=== PATIENT | female | born 1990 | race Caucasian/White ===

== ENCOUNTER 2016-11-20 13:14 | Emergency (ER) | payer OTHER ==
[~2016-11-20] VITALS: Ht 162.6 cm; Wt 67.8 kg
[2016-11-20] MEDS ORDERED: BACL1TAB8 GT (13:20)
[2016-11-20] MEDS ORDERED: ORTHTAB14 PO (13:20)
[2016-11-20] MEDS ORDERED: ONDANSETRON 4MG/2ML VIAL (J2405) IV ONE (14:00)
[2016-11-20] MEDS ORDERED: KETOROLAC 30 MG/ML VIAL (J1885) IV ONE (14:00)
[2016-11-20] MEDS ORDERED: GASTROGRAFIN SOLUTION 30ML (Q9963) PO ONE ×2 (14:30)
[2016-11-20 14:56] LABS: BASO # 0.1 K/mm3 (0.0-0.2); BASO % 0.7 % (0.0-1.0); EOS # 0.2 K/mm3 (0.0-0.50); EOS % 1.8 % (0.0-3.0); LARGE UNSTAINED CELL # 0.2 K/mm3 (0.0-0.4); LARGE UNSTAINED CELL % 2.1 % (0.0-4.0); LYMPH # 3.1 K/mm3 (1.5-6.5); LYMPH % 33.6 % (24.0-44.0); MEAN CORPUSCULAR HEMOGLOBIN 30.6 pg (27.0-33.0); MEAN CORPUSCULAR HGB CONC 33.3 g/dl (32.0-36.5); MEAN CORPUSCULAR VOLUME 91.9 fl (80.0-96.0); MONO # 0.2 K/mm3 (0.0-0.8); MONO % 2.6 % (0.0-5.0); NEUTROPHILS # 5.2 K/mm3 (1.8-7.7); NEUTROPHILS % 59.2 % (36.0-66.0); PLATELET COUNT, AUTOMATED 273 k/mm3 (150-450); WHITE BLOOD COUNT 8.8 K/mm3 (4.0-10.0)
[2016-11-20 14:57] LABS: ALBUMIN 3.8 GM/DL (3.2-5.2); ALBUMIN/GLOBULIN RATIO 1.06 (1.00-1.93); ALKALINE PHOSPHATASE 45 U/L (45-117); ALT/SGPT 22 U/L (12-78); ANION GAP 8 MEQ/L (8-16); AST/SGOT 17 U/L (15-37); BILIRUBIN,DIRECT < 0.1 MG/DL (0.0-0.2); BILIRUBIN,TOTAL 0.3 MG/DL (0.2-1.0); BLOOD UREA NITROGEN 11 MG/DL (7-18); CALCIUM LEVEL 9.1 MG/DL (8.5-10.1); CARBON DIOXIDE LEVEL 25 MEQ/L (21-32); CHLORIDE LEVEL 105 MEQ/L (98-107); CREATININE FOR GFR 0.94 MG/DL (0.55-1.02); GLOMERULAR FILTRATION RATE > 60.0 (>60); GLUCOSE, FASTING 84 MG/DL (70-105); POTASSIUM SERUM 4.1 MEQ/L (3.5-5.1); SODIUM LEVEL 138 MEQ/L (136-145); TOTAL PROTEIN 7.4 GM/DL (6.4-8.2)
[2016-11-20] MEDS ORDERED: ISOVUE-370 76% 100ML VIAL (Q9967) As Ordered ONE (15:58)
[2016-11-20] MEDS ORDERED: NAPR500T PO (16:27)
--- NOTE | 2016-11-20 16:37 | REP ---
REASON: Bilateral lower abdominal pain. COMPARISON EXAM: None. CONTRAST: 100 mL [id number]. The lung bases are clear. The liver, gallbladder, spleen, pancreas, adrenal glands, and kidneys are within normal limits. The abdominal aorta and paraortic regions are within normal limits. The intraabdominal bowel loops and their mesenteries are within normal limits. There was no free fluid or free air. The appendix is well visualized and is within normal limits. There is no abnormal periappendiceal fatty infiltration or fatty infiltration of the mesoappendix. There was no free fluid in the right pericolic gutter. CT PELVIS: There is a trace amount of free pelvic fluid probably physiologic. The bowel loops and their mesenteries are within normal limits. There is no free pelvic air. In the right adnexa there is a small oval shaped 2.9 cm sized low density structure having slightly higher than water Hounsfield unit readings. This is probably of ovarian origin. Bone window technique throughout the examination shows the osseous structures to be within normal limits. IMPRESSION: Probable small right ovarian cyst as described above. Signed by Howard Moseley DO 11/20/2016 04:53 P
[2016-11-20 16:42] VITALS: BP 126/81
== END 2016-11-20 16:45 | disposition home or self-care (01) ==
LOC: M ED 16:00
DX: N83.291 Other ovarian cyst, right side (principal); R11.0 Nausea; R10.31 Right lower quadrant pain; R10.32 Left lower quadrant pain; F17.200 Nicotine dependence, unspecified, uncomplicated; Z79.3 Long term (current) use of hormonal contraceptives; Z88.5 Allergy status to narcotic agent; Z88.8 Allergy status to other drugs, medicaments and biological substances
CPT/HCPCS: 74177; 80048; 80076; 81001; 81025; 83690; 85025; 86140; 96374; 96375; 99283; J1885; J2405; Q9963; Q9967